=== PATIENT | female | born 1950 | race Caucasian/White ===

== ENCOUNTER → 2016-11-13 | Outpatient (CLI) | payer OTHER ==
--- NOTE | 2016-11-13 10:39 | MRI ---
EXAM DESCRIPTION: Shoulder,Right CLINICAL HISTORY: 66 years, Female, SHOULDER PAIN COMPARISON: None TECHNIQUE: MRI of the right shoulder was performed with multiplanar multi sequence imaging according to our usual protocol. FINDINGS: Evaluation of the rotator cuff shows high-grade articular surface partial-thickness tear supraspinatus with delamination of articular side fibers. This represents tear of about 70% of the full-thickness. There is also moderate grade partial thickness tear of the articular surface of the distal infraspinatus as well. Subscapularis intact and unremarkable. No muscular atrophy of the rotator cuff. Nondisplaced degenerative tear posterior superior glenoid labrum. Long head biceps intact. No significant chondrosis of the glenohumeral joint. Moderate AC joint arthropathy with capsular thickening and edema. The patient has marked lateral downsloping of her type II acromion process. Small subacromial effusion Thickening of the inferior joint capsule raises the high likelihood of adhesive capsulitis. IMPRESSION: 1. High-grade partial-thickness articular surface tear supraspinatus 2. Moderate grade partial thickness articular surface tear infraspinatus 3. Degenerative tear posterior superior glenoid labrum 4. Likely adhesive capsulitis Electronically signed by: Richmond Celeste MD 11/13/2016 10:38 AM CDT
== END | disposition home or self-care (01) ==
LOC: MRI 06:50
PROVIDERS: ATTEND Family Medicine
DX: M75.41 Impingement syndrome of right shoulder (principal)

== ENCOUNTER → 2017-12-02 | Outpatient (CLI) | payer OTHER | LOC: LAB.O 15:39 | PROVIDERS: ATTEND Emergency Medicine | DX: M79.669 Pain in unspecified lower leg (principal); R55 Syncope and collapse ==